=== PATIENT | female | born 1955 | race Caucasian/White ===

== ENCOUNTER 2021-09-26 00:11 | Day surgery (SDC) | payer MEDICARE, SELFPAY ==
[2021-09-06 14:37] VITALS: BMI 24.0
[2021-09-26 06:46] VITALS: BP 137/73; PULSE 64; RESP 17; TEMP 37.4; O2SAT 100
[2021-09-26] MEDS: LACTATED RINGERS 1,000 ML 150 ML IV CONT (06:56)
--- NOTE | 2021-09-26 07:45 | WPDANESEPPF ---
Anes - Initial Pre Proc Eval Procedure: Operation Date: 09/26/21 08:00 Proposed Procedures p Screening Colonoscopy - Rik Perkins MD Date/Time: 09/26/21 07:45 Surgeon: Rik Perkins MD Pre Op Diagnosis: neoplasm screening Patient Data Age: 65 Gender: F Height: 1.63 m Weight: 61.8 kg Last Vital Signs Temp 99.3 F 09/26/21 06:46 Pulse 64 09/26/21 06:46 Resp 17 09/26/21 06:46 BP 137/73 09/26/21 06:46 Pulse Ox 100 09/26/21 06:46 Allergies Allergy/AdvReac Type Severity Reaction Status Date / Time No Known Allergies Allergy Verified 09/26/21 06:45 Home Medications Medication Instructions Recorded Confirmed Type adalimumab [Humira(CF) Pen] 40 mg SUBCUT [id number] 09/06/21 09/06/21 History amlodipine 2.5 mg PO DAILY 09/06/21 09/26/21 History atorvastatin 20 mg PO DAILY 09/06/21 09/26/21 History Patient hx anesthesia problems: none Family hx anesthesia problems: none Results Review: All pre-operative results and documents have been reviewed as part of the pre-operative evaluation. PMFSH Social History Social History Living arrangements: with family Anes - Eval Final PreProcedure Day of Procedure 09/26/21 07:45 Patient weight: overweight Heart: regular rate and rhythm Lungs: clear to auscultation Airway: Mallampati scale class II Neurological: alert and oriented Last oral intake: >/= 8 hours ASA classification: II Emergent: no Anesthetic plan: proceed Anesthesia type and monitoring: general GIVS and standard monitoring Results Review: All pre-operative results and documents have been reviewed as part of the pre-operative evaluation. Informed Consent: The patient's anesthetic plan and its attendant risks and benefits were discussed with the patient/family/POA. Questions were solicited and answers provided to the satisfaction of the patient/family/POA.
--- NOTE | 2021-09-26 07:55 | PM.HPGS ---
History of Present Illness History of Present Illness Consent: Risks, benefits, and alternatives have been discussed and questions answered. Patient agrees to proceed with procedure. Chief complaint: neoplasm screening Narrative: Jessica Brand is a 65 year old female with colon polyp about 5 years ago. Review of Systems Constitutional: Constitutional: Denies headache(s) and Denies weakness Eyes: Eyes: Denies blurry vision ENT: Reports Normal hearing present, Denies headache(s) and Denies neck pain Cardiovascular: Cardiovascular: Denies chest pain and Denies dyspnea Respiratory: Respiratory: Denies dyspnea Gastrointestinal: Gastrointestinal: Reports no additional gastrointestinal complaints Genitourinary: Genitourinary: Denies dysuria Musculoskeletal: Musculoskeletal: Denies neck pain Integumentary/Breasts: Skin/Breast: Denies dry skin Neurologic: Reports Normal hearing present, Denies headache(s) and Denies weakness Psychiatric: Psychiatric: Denies anxiety Endocrine: Endocrine: Denies change in body appearance Hematologic/Lymphatic: Hematologic/Lymphatic: Denies easy bleeding Allergic/Immunologic: Allergic/Immunologic: Denies urticaria PMFSH Past Medical History Medical History (Updated 09/26/21 @ 07:56 by Rik Perkins MD) Colon polyp Social History Social History Living arrangements: with family Meds Home Medications and Allergies Home Medications Medication Instructions Recorded Confirmed Type adalimumab [Humira(CF) Pen] 40 mg SUBCUT [id number] 09/06/21 09/06/21 History amlodipine 2.5 mg PO DAILY 09/06/21 09/26/21 History atorvastatin 20 mg PO DAILY 09/06/21 09/26/21 History Allergies Allergy/AdvReac Type Severity Reaction Status Date / Time No Known Allergies Allergy Verified 09/26/21 06:45 Vital Signs Vital Signs - 24 hr 09/26/21 06:46 Temperature 99.3 F Pulse Rate 64 Respiratory Rate 17 Blood Pressure 137/73 Pulse Oximetry 100 Exam Const: General: comfortable and no acute distress HENMT: General nose exam: Normal nares present Eyes: General: appearance normal, both eyes and all related structures Neck: Neck: no JVD Resp: Auscultation: clear to auscultation bilaterally Cardio: Rate: regular rate Rhythm: regular rhythm GI: Inspection: non-distended GI Palp: Yes Soft to palpation Skin: General skin exam: normal color Neuro: General: gait normal Speech: normal speech Extrem: General: normal to inspection Psych: Mental Status: mental status grossly normal Assessment and Plan Assessment and plan (1) Colon polyp: Code(s): K63.5 - Polyp of colon Status: Acute Assessment and Plan: colonoscopy
[2021-09-26 08:23] VITALS: BP 105/64; PULSE 76; RESP 22; O2SAT 95
[2021-09-26 08:33] VITALS: BP 114/67; PULSE 81; RESP 18; O2SAT 100
[2021-09-26 08:43] VITALS: BP 123/79; PULSE 67; RESP 19; O2SAT 99
== END 2021-09-26 08:48 | disposition home or self-care (01) ==
PROVIDERS: PCP Family Medicine; Visit Provider Internal Medicine Gastroenterology
PROC: 0DJD8ZZ Inspection of Lower Intestinal Tract, Via Natural or Artificial Opening Endoscopic (ICD-10-PCS; CPT 45378; principal; 2021-09-26 08:00)
DX: Z12.11 Encounter for screening for malignant neoplasm of colon (principal); K63.5 Polyp of colon; K57.30 Diverticulosis of large intestine without perforation or abscess without bleeding; K64.8 Other hemorrhoids
CPT/HCPCS: 45380; 88305; J2704; J7120

== ENCOUNTER 2022-11-11 13:35 | Emergency (ER) | payer MEDICARE, SELFPAY ==
[2022-11-11 13:46] VITALS: BP 154/91; PULSE 69; RESP 14; TEMP 36.7; O2SAT 100
--- NOTE | 2022-11-11 14:44 | ED.EXTPRO ---
HPI - Extremity Problem General Chief complaint: Extremity Problem,Nontraumatic Stated complaint: Left Leg Numbness Source: patient and RN notes reviewed History of Present Illness HPI Narrative: 66-year-old female presents urgent care with at side. Patient states yesterday she began having left leg pain and tingling of started from her lateral hip that radiates down to her foot. Patient states she can feel it in her buttocks at times. Patient denies any known injury, fevers, chills, saddle anesthesia, incontinence of urine or stool, or back pain. Patient did take Advil last night with good relief. Some parts of this dictation were generated by voice recognition software and may contain typographical and/or grammatical inaccuracies. Related Data Home Medications Medication Instructions Recorded Confirmed adalimumab 40 mg/0.4 mL 40 mg subcut [id number] 09/06/21 11/11/22 subcutaneous pen kit (Humira(CF) Pen) amlodipine 2.5 mg tablet 2.5 mg PO DAILY 09/06/21 11/11/22 atorvastatin 20 mg tablet 20 mg PO DAILY 09/06/21 11/11/22 clobetasol 0.05 % topical spray 1 spray topical DIRECTED 11/11/22 11/11/22 Allergies Allergy/AdvReac Type Severity Reaction Status Date / Time No Known Allergies Allergy Verified 11/11/22 13:58 Review of Systems Review of Systems: CONSTITUTIONAL: Denies fever, chills, or sweats. EYES: Denies visual changes, redness, or discharge. ENT: Denies otalgia and sore throat CARDIOVASCULAR: Denies chest pain, palpitations, or edema. RESPIRATORY: Denies cough or dyspnea. GASTROINTESTINAL: Denies abdominal pain, nausea, vomiting, or diarrhea. GENITOURINARY: Denies dysuria or hematuria. SKIN: Denies rash or itching. MUSCULOSKELETAL: Left leg pain NEUROLOGIC: Denies headache, numbness, or weakness. [facility] Past Medical History Medical History (Updated 11/11/22 @ 14:46 by Kimi Monaco, CARLOS) Colon polyp Social History Social History Living arrangements: with family Comments At the time of my signature, I reviewed and agree with the nursing past medical, surgical, social, and family history. There is no relevant family history pertinent to the patient complaint. Exam Narrative: GENERAL: This is a well-nourished, well-developed patient, in no apparent distress. HEAD: normocephalic, atraumatic. EYES: PERRL. Sclera clear/white. Vision is grossly intact. EARS: External ears normal, auditory canals clear and without drainage, TMs normal without perforation. Hearing grossly intact. NOSE: External nose normal with no obvious nasal discharge, nares without redness, no rhinorrhea. THROAT: Mucous membranes moist, posterior pharynx clear. NECK: Neck supple, non-tender without lymphadenopathy, masses or thyromegaly. CARDIOVASCULAR: Regular rate RESPIRATORY: No respiratory distress GASTROINTESTINAL: Abdomen soft, non-tender, nondistended. Bowel sounds are active. No hepato-splenomegaly, or palpable masses. No guarding. SKIN: warm, intact with no suspicious lesions or rash, good texture and turgor. NEURO: awake, alert, and oriented to person, place and time. There were no obvious focal neurologic abnormalities. EXTREMITIES: No clubbing, cyanosis, or edema. No joint tenderness, effusion, or edema noted. No calf tenderness. Negative Homans sign bilaterally. Course Course Level of Care: Express Care Visit Vital Signs Vital signs: Vital Signs Temperature 98.1 F 11/11/22 13:46 Pulse Rate 69 11/11/22 13:46 Respiratory Rate 14 11/11/22 13:46 Blood Pressure 154/91 H 11/11/22 13:46 Pulse Oximetry 100 11/11/22 13:46 Oxygen Delivery Room Air 11/11/22 13:46 Temperature 98.1 F 11/11/22 13:46 Pulse Rate 69 11/11/22 13:46 Respiratory Rate 14 11/11/22 13:46 Blood Pressure 154/91 H 11/11/22 13:46 Pulse Oximetry 100 11/11/22 13:46 Oxygen Delivery Room Air 11/11/22 13:46 Reviewed MDM - Extremity (Nontraumatic) MDM Narrative Medical decision making narra
== END 2022-11-11 14:50 | disposition home or self-care (01) ==
PROVIDERS: Emergency Provider Nurse Practitioner Family; PCP Family Medicine
DX: M54.32 Sciatica, left side (principal); I10 Essential (primary) hypertension; L40.9 Psoriasis, unspecified
CPT/HCPCS: 99213; G0463